=== PATIENT | male | born 1995 | race Caucasian/White ===

== ENCOUNTER 2018-08-04 21:30 | Emergency (ER) | payer OTHER ==
[~2018-08-04] VITALS: Ht 175.3 cm; Wt 81.6 kg
== END 2018-08-04 22:32 | disposition home or self-care (01) ==
LOC: ER 21:30
DX: S40.012A Contusion of left shoulder, initial encounter (principal); W18.09XA Striking against other object with subsequent fall, initial encounter; Y93.67 Activity, basketball; Y92.89 Other specified places as the place of occurrence of the external cause; Y99.8 Other external cause status

== ENCOUNTER → 2019-05-05 | Outpatient (CLI) | payer OTHER | END | disposition home or self-care (01) | LOC: MAMO-SONO 10:55 | DX: N45.1 Epididymitis (principal); I86.1 Scrotal varices ==